=== PATIENT | male | born 1995 | race Asian ===

== ENCOUNTER 2020-02-24 05:50 | Day surgery (SDC) | payer OTHER ==
[~2020-02-24] VITALS: Ht 170.2 cm; Wt 72.3 kg
[~2020-02-24 05:50] MED LIST: SODIUM CHLORIDE 0.9% 1,000 ML ONE
[2020-02-24] MEDS ORDERED: AMOX1TAB15 PO (06:49)
[2020-02-24] MEDS ORDERED: MONT10TA21 PO (06:49)
[2020-02-24] MEDS ORDERED: FLUT16H NASAL (06:49)
[2020-02-24] MEDS ORDERED: BECL10.6 IH (06:49)
[2020-02-24] MEDS ORDERED: SODIUM CHLORIDE 0.9% 1,000 ML IV ONE (07:00)
[2020-02-24] MEDS ORDERED: MIDAZOLAM HCL 2 MG/2 ML VIAL ONE (07:54)
[2020-02-24] MEDS ORDERED: FentaNYL CITRATE-PF 100 MCG/2 ML VIAL ONE (07:54)
[2020-02-24] MEDS ORDERED: MethylPREDNISolone SOD SUCC 125 MG/2 ML VIAL IVP ONE (09:00)
[2020-02-24] MEDS ORDERED: MethylPREDNISolone SOD SUCC 125 MG/2 ML VIAL ONE (09:23)
[2020-02-24] MEDS ORDERED: LIDOCAINE 2% 30 ML JELLY ONE (16:55)
[2020-02-24] MEDS ORDERED: ALBUTEROL SULFATE 2.5 MG/0.5 ML NEB SOLUTION NEB ONE (16:55)
[2020-02-24] MEDS ORDERED: LIDOCAINE 4% 50 ML SOLUTION ONE (16:55)
[2020-02-24] MEDS ORDERED: BENZOCAINE 20% 50 MCG/SPRAY 57 GM ONE (16:55)
[2020-02-24] MEDS ORDERED: OXYGEN THERAPY IH SCH (20:00)
== END 2020-02-24 10:50 | disposition home or self-care (01) ==
LOC: SURGERY 05:50
PROVIDERS: ATTEND Internal Medicine Critical Care Medicine
DX: B37.0 Candidal stomatitis (principal); J98.4 Other disorders of lung; Z11.59 Encounter for screening for other viral diseases
CPT/HCPCS: 31623; 31624; 71045; 87015; 87070; 87101; 87205; 87206; 87220; 87635; 88108; 88312; J2250; J2930; J3010; J7030; J7613; Z7610